=== PATIENT | female | born 1955 | race Caucasian/White ===

== ENCOUNTER 2020-06-17 09:32 | Outpatient (CLI) | payer OTHER | END 2020-06-17 09:33 | disposition home or self-care (01) | LOC: CSHMRI 09:32 | PROVIDERS: ATTEND Physician Assistant Medical | DX: K76.9 Liver disease, unspecified (principal); R13.10 Dysphagia, unspecified; K76.89 Other specified diseases of liver | CPT/HCPCS: 74183 ==